=== PATIENT | female | born 1995 | race Caucasian/White ===

== ENCOUNTER 2021-05-17 04:56 | Observation (INO) | payer OTHER, SELFPAY ==
[2021-05-17 06:05] VITALS: BMI 36.6
--- NOTE | 2021-05-17 06:05 | OBADM ---
This patient, Kirstie Fernández, admitted to the OB room Labor/Delivery/Recovery 106 for observation. Patient/family oriented to hospital policies and general routines including ID bracelet, bed and alarms, visiting hours, pain management, procedures, bathroom and other care routines, personal items, smoking policy, room service/diet, and visiting hours. Patient/Family are encouraged to report perceived risks to care and to ask questions if they do not understand what they are told or what they should do.
--- NOTE | 2021-05-19 12:25 | P.PNOB_ITS ---
OB - Triage/Final Diagnosis Visit Information Date of evaluation: 05/19/21 Reason for evaluation: threatened labor Comments/Additional reasons for admission: I have assessed the risk for this patient, Kirstie Giancarlo Fernández, and determined that she would benefit from o bservation care.
== END 2021-05-17 07:18 | disposition home or self-care (01) ==
PROVIDERS: Admitting Provider Obstetrics & Gynecology; PCP Nurse Practitioner Family; Visit Provider Obstetrics & Gynecology
DX: O47.1 False labor at or after 37 completed weeks of gestation (principal); Z3A.38 38 weeks gestation of pregnancy
CPT/HCPCS: G0378; G0379

== ENCOUNTER 2021-05-19 16:03 | Inpatient (IN) | payer OTHER, SELFPAY ==
[2021-05-19] VITALS (14 sets, daily range): BP systolic 94–131; BP diastolic 37–83; PULSE 66–99; BMI 37.0
--- NOTE | 2021-05-19 17:04 | LDADM ---
This patient, Kirstie Fernández, was admitted to Labor/Delivery/Recovery 109 on 05/19/21 at 16:03. Plans for labor, pain management and were discussed with patient. Patient/family oriented to hospital policies and general routines including ID bracelet, bed and alarms, visiting hours, pain management, procedures, bathroom and other care routines, personal items, smoking policy, room service/diet and guest tray routines, infant security routines, and visiting hours. Patient/Family are encouraged to report perceived risks to care and to ask questions if they do not understand what they are told or what they should do. See OBIX for further documentation.
[2021-05-19 17:05] LABS: Basophils Percent Auto 0.2 % (0.2-1.2); Eosinophils Absolute Auto 0.1 K/mm3 (0-0.3); Eosinophils Percent Auto 0.6 % (0-4.4); Hematocrit 32.3 % (37.0-47.0); Hemoglobin 10.6 g/dL (12.0-15.0); Immature Granulocyte Absolute 0.19 K/mm3 (0.00-0.031); Immature Granulocyte Percent A 1.4 % (0-0.5); Lymphocytes Absolute Auto 2.45 K/mm3 (0.9-3.2); Lymphocytes Percent Auto 17.6 % (18.3-44.2); Mean Corpuscular HGB Conc 32.8 g/dl (32-36); Mean Corpuscular Hemoglobin 27.7 pg (26-34); Mean Corpuscular Volume 84.6 fl (80-100); Mean Platelet Volume 10.8 fl (7.4-10.4); Monocytes Absolute Auto 0.7 K/mm3 (0.1-0.6); Neutrophils Absolute Auto 10.5 K/mm3 (1.3-6.7); Neutrophils Percent Auto 75.2 % (45.5-73.1); Platelet Count Result 246 k/mm3 (150-375); Red Blood Count 3.82 M/mm3 (4.2-5.4); Red Cell Distribution Width 14.3 % (11.5-14.5); White Blood Count 13.9 K/mm3 (4.5-10.0)
[2021-05-19] MEDS: DINOPROSTONE 10 MG VAG INSERT VAGINAL (17:08)
[2021-05-20] VITALS (123 sets, daily range): BP systolic 80–128; BP diastolic 37–99; PULSE 59–147; RESP 14–18; TEMP 36.5–37.1; O2SAT 95–100
[2021-05-20] MEDS: fentaNYL CITRATE INJ (*CRX) 100 MCG/2 ML VIAL 50 MCG IV PUSH ×3 (02:15→06:29)
[2021-05-20] MEDS: LACTATED RINGERS 1,000 ML 125 ML IV CONT ×2 (03:24→07:32)
--- NOTE | 2021-05-20 07:57 | WPDANESEPPF ---
Anes - Initial Pre Proc Eval Procedure: labor epidural Date/Time: 05/20/21 07:57 Surgeon: Iban Joe MD Pre Op Diagnosis: labor pain Pre Op Diagnosis: iol Patient Data Age: 25 Gender: F Height: 1.57 m Weight: 92 kg Last Vital Signs Pulse 76 05/20/21 07:55 BP 112/61 05/20/21 07:55 Pulse Ox 98 05/20/21 07:54 Allergies Allergy/AdvReac Type Severity Reaction Status Date / Time Sulfa (Sulfonamide Allergy Unknown RASH Verified 05/18/20 09:52 Antibiotics) Home Medications Medication Instructions Recorded Confirmed Type PNV cmb#95-ferrous fumarate-FA 1 tablet PO DAILY 04/26/21 05/19/21 History [] famotidine [Pepcid] 20 mg PO DAILY 05/17/21 05/19/21 History Laboratory Tests 05/19/21 05/19/21 05/19/21 16:52 16:52 17:38 WBC 13.9 K/mm3 H K/mm3 (4.5-10.0) RBC 3.82 M/mm3 L M/mm3 (4.2-5.4) Hgb 10.6 g/dL L g/dL (12.0-15.0) Hct 32.3 % L % (37.0-47.0) MCV 84.6 fl fl (80-100) MCH 27.7 pg pg (26-34) MCHC 32.8 g/dl g/dl (32-36) RDW 14.3 % % (11.5-14.5) Plt Count 246 k/mm3 k/mm3 (150-375) MPV 10.8 fl H fl (7.4-10.4) Immature Gran % (Auto) 1.4 % H % (0-0.5) Neut % (Auto) 75.2 % H % (45.5-73.1) Lymph % (Auto) 17.6 % L % (18.3-44.2) [place] % (Auto) 5.0 % % (2.6-8.5) Eos % (Auto) 0.6 % % (0-4.4) Baso % (Auto) 0.2 % % (0.2-1.2) Lymph # (Auto) 2.45 K/mm3 K/mm3 (0.9-3.2) [place] # (Auto) 0.7 K/mm3 H K/mm3 (0.1-0.6) Eos # (Auto) 0.1 K/mm3 K/mm3 (0-0.3) Baso # (Auto) 0.0 K/mm3 K/mm3 (0.0-0.1) Abs Immat Gran (auto) 0.19 K/mm3 H K/mm3 (0.00-0.031) Absolute Neuts (auto) 10.5 K/mm3 H K/mm3 (1.3-6.7) Absolute Nucleated RBC 0.0 K/mm3 K/mm3 (0.0-0.012) Nucleated RBC % 0.0 % % (0.0-0.2) RPR Pending Blood Type A Positive Antibody Screen Negative Patient hx anesthesia problems: none Family hx anesthesia problems: none Results Review: All pre-operative results and documents have been reviewed as part of the pre-operative evaluation. [facility] Family History Family History (Updated 04/26/21 @ 15:53 by Ry Belcher RN) Mother Cerebrovascular accident Heart disease Thyroid disease Father Heart disease Diabetes mellitus Crohn disease Social History Social History (Updated 05/18/20 @ 09:53 by Johnna Cortes MA) Smoking packs per day: 0.5 Smoking cigarettes per day: 10.0 Smoking status: Current some day smoker Substance use: never Spiritual care concerns: No Anes - Eval Final PreProcedure Day of Procedure 05/20/21 07:57 Patient weight: obese ASA classification: II Anesthesia type and monitoring: regional epidural and standard monitoring Results Review: All pre-operative results and documents have been reviewed as part of the pre-operative evaluation. Informed Consent: The patient's anesthetic plan and its attendant risks and benefits were discussed with the patient/family/POA. Questions were solicited and answers provided to the satisfaction of the patient/family/POA.
--- NOTE | 2021-05-20 08:45 | WPDHPUPDATE1 ---
History and Physical Update Update Date/Time: 05/20/21 2095 History and Physical has been reviewed, including an updated exam of the patient. There are NO changes in the patient's condition. Risks, benefits, and alternatives have been discussed and questions answered. Patient agrees to proceed with procedure.
--- NOTE | 2021-05-20 09:22 | WPDANESEFPP ---
Anes - Eval Final PreProcedure Day of Procedure 05/20/21 09:22 Patient weight: obese Heart: regular rate and rhythm Lungs: clear to auscultation and normal air movement Airway: Mallampati scale class II Neurological: alert and oriented Last oral intake: >/= 8 hours ASA classification: II Emergent: no Anesthetic plan: proceed Anesthesia type and monitoring: regional epidural and standard monitoring Other findings: C/S - breech presentation Results Review: All pre-operative results and documents have been reviewed as part of the pre-operative evaluation. Informed Consent: The patient's anesthetic plan and its attendant risks and benefits were discussed with the patient/family/POA. Questions were solicited and answers provided to the satisfaction of the patient/family/POA.
[2021-05-20] MEDS: ceFAZolin 2 GM/D5W 50 ML 2 GM/50 ML BAG IVPB (09:41)
--- NOTE | 2021-05-20 09:47 | PM.IMHP ---
H&P: HPI History of Present Illness Date/Time: 05/20/21 09:47 25 y/o at 39 1/7 weeks gestation here for induction of labor. Cervidil was placed overnight, has been withdrawn. Now comfortable with epidural. Chief Complaint: Here for induction of labor Review of Systems Review of Systems: All systems reviewed & are unremarkable except as noted in HPI and below PMFSH Family History Family History Mother Cerebrovascular accident Heart disease Thyroid disease Father Heart disease Diabetes mellitus Crohn disease Social History Social History Smoking packs per day: 0.5 Smoking cigarettes per day: 10.0 Smoking status: Current some day smoker Substance use: never Spiritual care concerns: No Meds Home Medications and Allergies Home Medications Medication Instructions Recorded Confirmed Type PNV cmb#95-ferrous fumarate-FA 1 tablet PO DAILY 04/26/21 05/19/21 History [] famotidine [Pepcid] 20 mg PO DAILY 05/17/21 05/19/21 History Allergies Allergy/AdvReac Type Severity Reaction Status Date / Time Sulfa (Sulfonamide Allergy Unknown RASH Verified 05/18/20 09:52 Antibiotics) Vital Signs Vital Signs - 24 hr 05/19/21 17:12 05/19/21 17:30 05/19/21 18:00 Pulse Rate 91 85 83 Blood Pressure 115/83 111/76 113/70 Pulse Oximetry 05/19/21 18:31 05/19/21 19:00 05/19/21 19:30 Pulse Rate 99 91 82 Blood Pressure 130/81 111/70 114/76 Pulse Oximetry 05/19/21 20:00 05/19/21 20:30 05/19/21 21:00 Pulse Rate 74 93 66 Blood Pressure 124/72 109/56 L 114/63 Pulse Oximetry 05/19/21 21:30 05/19/21 22:01 05/19/21 22:30 Pulse Rate 75 75 74 Blood Pressure 131/77 94/37 L 110/61 Pulse Oximetry 05/19/21 23:00 05/19/21 23:30 05/20/21 00:00 Pulse Rate 78 94 90 Blood Pressure 105/50 L 107/55 L 100/48 L Pulse Oximetry 05/20/21 00:30 05/20/21 01:00 05/20/21 01:30 Pulse Rate 91 91 82 Blood Pressure 122/73 122/99 H 104/57 L Pulse Oximetry 05/20/21 02:00 05/20/21 02:30 05/20/21 03:00 Pulse Rate 81 78 78 Blood Pressure 105/46 L 101/50 L 102/51 L Pulse Oximetry 05/20/21 03:30 05/20/21 04:00 05/20/21 04:30 Pulse Rate 83 77 77 Blood Pressure 113/62 107/69 89/50 L Pulse Oximetry 05/20/21 04:53 05/20/21 05:00 05/20/21 05:30 Pulse Rate 90 76 87 Blood Pressure 104/62 105/51 L 110/73 Pulse Oximetry 05/20/21 06:01 05/20/21 07:00 05/20/21 07:21 Pulse Rate 116 H 97 111 H Blood Pressure 96/67 L 128/79 119/71 Pulse Oximetry 100 05/20/21 07:25 05/20/21 07:28 05/20/21 07:30 Pulse Rate 97 85 78 Blood Pressure 102/63 113/97 H 103/60 Pulse Oximetry 96 98 05/20/21 07:33 05/20/21 07:34 05/20/21 07:35 Pulse Rate 91 90 Blood Pressure 116/62 108/66 Pulse Oximetry 98 05/20/21 07:38 05/20/21 07:39 05/20/21 07:40 Pulse Rate 94 84 Blood Pressure 107/67 110/65 Pulse Oximetry 98 05/20/21 07:43 05/20/21 07:44 05/20/21 07:45 Pulse Rate 92 102 H Blood Pressure 103/64 109/63 Pulse Oximetry 98 05/20/21 07:48 05/20/21 07:50 05/20/21 07:53 Pulse Rate 91 87 91 Blood Pressure 98/61 L 108/67 109/72 Pulse Oximetry 99 05/20/21 07:54 05/20/21 07:55 05/20/21 07:58 Pulse Rate 76 80 Blood Pressure 112/61 106/65 Pulse Oximetry 98 05/20/21 07:59 05/20/21 08:00 05/20/21 08:03 Pulse Rate 91 77 Blood Pressure 102/63 101/62 Pulse Oximetry 99 05/20/21 08:05 05/20/21 08:08 05/20/21 08:09 Pulse Rate 86 83 Blood Pressure 105/64 101/59 L Pulse Oximetry 98 99 05/20/21 08:10 05/20/21 08:13 05/20/21 08:14 Pulse Rate 91 75 Blood Pressure 105/67 97/37 L Pulse Oximetry 98 05/20/21 08:15 05/20/21 08:18 05/20/21 08:19 Pulse Rate 86 92 Blood Pressure 108/65 101/58 L Pulse Oximetry 98 05/20/21 08:20 05/20/21 08:23 05/20/21 08:24 Pulse Rate 82 93 Blood Pressur
[2021-05-20] MEDS: KETOROLAC 30 MG/ML VIAL (*BKC) 15 MG IV PUSH (10:00)
--- NOTE | 2021-05-20 10:27 | P.PCNOB_ITS ---
OB - Delivery Note Procedure Delivery date: 05/20/21 Procedure: Procedures Operation Date: 05/20/21 09:45 <No data on this case meets the specified criteria> Primary low transverse delivery Delivery monitor: external FHT and external uterine Route of delivery: Specimen: Yes (cord blood) Quantitative Blood Loss (ml): 635 Anesthesia type: Epidural Disposition: PACU Complications: None Narrative: The patient was taken to the operating room where she was prepared and draped in the usual sterile fashion in dorsal supine position with a leftward tilt. She received cefazolin preoperatively. Epidural anesthesia was found to be adequate. A Pfannenstiel skin incision was made and carried through to the underlying layer of the fascia. The fascia was incised in the midline and the incision was extended laterally. The fascia was dissected free of the underlying rectus muscles. The rectus muscles were in the midline. The peritoneum was identified, tented up and entered sharply. The peritoneal incision was extended superiorly and inferiorly with good visualization of the bladder. The bladder blade was placed. The vesicouterine peritoneum was identified, tented up and entered sharply. The incision was extended laterally and the bladder flap was developed. The bladder blade was replaced. The uterus was then incised sharply in a transverse fashion along the lower uterine segment. The incision was extended laterally. The 's breech was delivered atraumatically to the sterile field to the level of the scapulae. The arms were swept across the chest and delivered. The head was gently flexed and easily delivered. The nose and mouth were bulb suctioned. After a delay, the cord was clamped and cut. The was handed off the field. Cord blood was collected. The placenta was removed manually and was passed off the field. The uterus was exteriorized and cleared of all clots and debris. The uterine incision was reapproximated using 0 Monocryl in a running, locked fashion. A second, imbricating layer of the same suture was run. Excellent hemostasis resulted as did excellent reapproximation of the normal anatomy. The uterus was returned the abdomen. The pelvis was irrigated copiously with warmed normal saline. Rigorous hemostasis was assured. The fascial layer was reapproximated using 0 Vicryl in a running fashion. The skin was closed with a running, subcuticular stitch of 4 0 Vicryl. Dermaflex was applied externally. Sponge, lap, needle and instrument counts were correct. The patient was taken to the recovery room in stable condition. The went to the nursery in stable condition. I was present and scrubbed the entire procedure. [place] Baby Date of : 05/20/21 Time of : 09:57 Weeks of gestation at delivery: 39 Infant gender: Male Weight (pounds): 8 Weight (ounces): 7 presentation: johnathan breech Placenta delivery description: Manual Removal and Normal Configuration cord vessel description: 3 Vessels and Delayed Cord Clamping score one minute: 8 score five minutes: 9
--- NOTE | 2021-05-20 10:28 | WPDHPUPDATE1 ---
History and Physical Update Update Date/Time: 05/20/21 10:28 History and Physical has been reviewed, including an updated exam of the patient. There are NO changes in the patient's condition. Risks, benefits, and alternatives have been discussed and questions answered. Patient agrees to proceed with procedure.
[2021-05-20] MEDS: OXYTOCIN 30 UNITS/NS 500 ML 30 UNITS/500 ML BAG 125 UNITS IV CONT (13:30)
--- NOTE | 2021-05-20 13:30 | OBPPTRN ---
Patient transferred to post room #280 via stretcher. Support person present. Oriented to unit, room, information board, rooming in, admission packet and security measures. Patient verbalizes understanding.
[2021-05-20 13:34] LABS: Rapid Plasma Reagin Non-Reactive (NonReactive)
[2021-05-20] MEDS: KETOROLAC 30 MG/ML VIAL (*BKC) IV PUSH (14:03)
[2021-05-20] MEDS: diphenhydrAMINE HCl INJ 50 MG/ML VIAL 25 MG IV PUSH (16:03)
[2021-05-20] MEDS: SIMETHICONE 80 MG TAB.CHEW PO (16:03)
[2021-05-20] MEDS: DEXTROSE 5%/0.45% SOD CHL 1,000 ML 125 ML IV CONT (17:13)
[2021-05-20] MEDS: HYDROcodone/acetaminophen (*CRX) 10-325 MG TABLET 1 TAB PO ×2 (20:31→23:29)
[2021-05-20] MEDS: IBUPROFEN 600 MG TABLET PO (20:31)
[2021-05-21] MEDS: HYDROcodone/acetaminophen (*CRX) 5-325 MG TABLET 1 TAB PO ×4 (03:48→22:09)
[2021-05-21] MEDS: IBUPROFEN 600 MG TABLET PO ×4 (03:49→22:10)
[2021-05-21 05:12] LABS: Basophils Percent Auto 0.2 % (0.2-1.2); Eosinophils Absolute Auto 0.1 K/mm3 (0-0.3); Eosinophils Percent Auto 0.5 % (0-4.4); Hematocrit 29.8 % (37.0-47.0); Hemoglobin 9.3 g/dL (12.0-15.0); Immature Granulocyte Absolute 0.09 K/mm3 (0.00-0.031); Immature Granulocyte Percent A 0.7 % (0-0.5); Lymphocytes Absolute Auto 2.61 K/mm3 (0.9-3.2); Lymphocytes Percent Auto 19.8 % (18.3-44.2); Mean Corpuscular HGB Conc 31.2 g/dl (32-36); Mean Corpuscular Hemoglobin 27.4 pg (26-34); Mean Corpuscular Volume 87.9 fl (80-100); Mean Platelet Volume 11.3 fl (7.4-10.4); Monocytes Percent Auto 7.4 % (2.6-8.5); Neutrophils Absolute Auto 9.4 K/mm3 (1.3-6.7); Neutrophils Percent Auto 71.4 % (45.5-73.1); Platelet Count Result 190 k/mm3 (150-375); Red Blood Count 3.39 M/mm3 (4.2-5.4); Red Cell Distribution Width 14.6 % (11.5-14.5); White Blood Count 13.2 K/mm3 (4.5-10.0)
[2021-05-21 08:15] VITALS: BP 98/65; PULSE 70; RESP 16; TEMP 36.8; O2SAT 99
--- NOTE | 2021-05-21 10:39 | WPDANLDPN2 ---
Anes-Prog Note L&D Date/Time: 05/21/21 10:39 Comfortable throughout: labor and section Neuraxial method: epidural Epidural/Spinal procedure site: clean & non-tender Neuro status: Neuro function grossly intact. Cardiovascular status: normal Respiratory status: normal Airway patency: baseline Mental status: baseline Post-Op hydration status: normal Vital Signs: Last Vital Signs Temp 36.8 C 05/21/21 08:15 Pulse 70 05/21/21 08:15 Resp 16 05/21/21 08:15 BP 98/65 L 05/21/21 08:15 Pulse Ox 99 05/21/21 08:15 Pain score (VAS): 06/21 I/O: Intake & Output 05/20/21 05/21/21 05/21/21 23:59 07:59 15:59 Intake Total 270 1050 Output Total 100 2825 Balance 170 -1775 Post-procedural complaints: pruritis severe, treatment refractory Patient feedback: Patient satisfied with anesthetic care.
--- NOTE | 2021-05-21 10:40 | WPDANLDNPN2 ---
Anes-Prog Note L&D-Neuraxial Date/Time: 05/21/21 10:40 Neuraxial medications: epidural PF morphine Opiod-related complaints: pruritis severe, treatment refractory Patient feedback: Patient satisfied with post-operative pain management.
[2021-05-21] MEDS: POLYSACCHARIDE IRON COMPLEX 150 MG CAPSULE PO ×2 (10:55→16:32)
[2021-05-21] MEDS: DOCUSATE SODIUM 100 MG CAPSULE PO ×2 (10:55→16:32)
[2021-05-21] MEDS: MULTIVIT/MIN/PREN/FOL AC/IRON TABLET 1 TAB PO (10:55)
--- NOTE | 2021-05-21 12:10 | PM.OBPNVD ---
OB - PN: Subj Subjective Date/time seen: 05/21/21 12:10 Narrative: Pain OK. Tolerating diet. Would like circumcision for son. OB - PN: Obj Data Labs CBC & Chem 7: 05/21/21 03:59 Labs: Laboratory Results - last 24 hr 05/19/21 05/21/21 16:52 03:59 WBC 13.2 H RBC 3.39 L Hgb 9.3 L Hct 29.8 L MCV 87.9 MCH 27.4 MCHC 31.2 L RDW 14.6 H Plt Count 190 MPV 11.3 H Immature Gran % (Auto) 0.7 H Neut % (Auto) 71.4 Lymph % (Auto) 19.8 [place] % (Auto) 7.4 Eos % (Auto) 0.5 Baso % (Auto) 0.2 Lymph # (Auto) 2.61 [place] # (Auto) 1.0 H Eos # (Auto) 0.1 Baso # (Auto) 0.0 Abs Immat Gran (auto) 0.09 H Absolute Neuts (auto) 9.4 H Absolute Nucleated RBC 0.0 Nucleated RBC % 0.0 RPR Non-reactive OB - PN A/P Plan Comments: A: POD#1, doing well. P: Routine care. Reviewed circ. Exam Narrative: AVSS I/O OK ABD soft, nontender, fundus firm. Incision c/d/i. EXT nontender
--- NOTE | 2021-05-21 12:13 | PM.OBDSVD ---
DS: Admitting Diagnosis Discharge Date 05/22/21 Admitting Diagnosis IUP at 39 1/7 weeks DS: Discharge Diagnosis Discharge Diagnosis (1) delivery delivered: Code(s): O82 - Encounter for delivery without indication Status: Acute OB - DS: Summary OB Procedures : Ultrasound OB Procedures Intrapartum: OB Procedures: : None Peripartum Data Procedures: Procedures Operation Date: 05/20/21 09:45 Actual Procedure Side Surgeon p Section Not Applicable Iban Joe MD DS: Data Data Completed and Pending Labs on day of discharge: Labs from last 24 hours 05/21/21 05/19/21 03:59 16:52 WBC 13.2 H RBC 3.39 L Hgb 9.3 L Hct 29.8 L MCV 87.9 MCH 27.4 MCHC 31.2 L RDW 14.6 H Plt Count 190 MPV 11.3 H Immature Gran % (Auto) 0.7 H Neut % (Auto) 71.4 Lymph % (Auto) 19.8 [place] % (Auto) 7.4 Eos % (Auto) 0.5 Baso % (Auto) 0.2 Lymph # (Auto) 2.61 [place] # (Auto) 1.0 H Eos # (Auto) 0.1 Baso # (Auto) 0.0 Abs Immat Gran (auto) 0.09 H Absolute Neuts (auto) 9.4 H Absolute Nucleated RBC 0.0 Nucleated RBC % 0.0 RPR Non-reactive Discharge Plan Discharge Attending physician on discharge: Iban Joe Consulting providers: Ruddy [facility] Discharging Clinician: Iban Joe Patient Disposition: Home, Self-Care Activity: may shower, may drive after 2 weeks and pelvic rest Diet: regular Wound Care Instructions: incision open to air Discharge Instructions: Call or return if temperature above 100.4? F, increased abdominal pain, increased vaginal bleeding or any new problems. Education: Mom and Baby Guide Given to: Mother Follow-Up: Call your delivering provider's office for an appointment to be seen in: 4 Weeks Mom and baby should come to the [facility] for the follow-up appointment. Appointment Date/Time: May 24, 2021 at 10:00 am What to expect at your follow-up visit: Physical Assessment Call [phone] if you are unable to keep your appointment time. BREAST CARE: * Wear a snug supportive bra. * For engorgement discomfort: Bottle Feeding: * May apply ice packs ABDOMINAL INCISION: (if applicable) * Allow incision to air dry * Do NOT use lotions for powders on your incision * When showering, allow soap and water to run over the incision, but do not wash incision EPISIOTOMY/PERINEAL CARE: * Until bleeding stops, use your clark bottle after urinating * Change your pad frequently throughout the day * No tub baths until seen by your physician - You may shower ACTIVITY: * Rest as much as possible. * Do not exercise or lift anything heavier than your baby (such as laundry or other children.) * Avoid stairs or driving as much as possible. * Do not put anything into the vagina. No douching, tampons, or sexual activity until seen by physician. NOTIFY PHYSICIAN IF YOU HAVE ANY QUESTIONS OR IF ANY OF THE FOLLOWING SYMPTOMS OCCUR: * If your incision becomes red, swollen, or more painful than what you have experienced in the hospital. * If your vaginal bleeding becomes foul smelling. * If your vaginal bleeding becomes more heavy than a period or if your bleeding changes from pink to bright red. However, you may pass an occasional walnut-sized clot once or twice for the first week . * If you experience a sharp, shooting pain in you calves. * If you discover a hard, reddened area on your breast or if you experience flu-like symptoms. DIET: * Eat regular, well-balanced meals. * Drink plenty of fluids daily. If , drink to thirst. Stand Alone Forms: General Discharge Information Follow-up/Referrals: Iban Joe MD [Physician] - 4 Weeks Discharge Medications: New ibuprofen 600 mg tablet 600 mg PO Q6H PRN (Reason: cramps) Qty: 30 RF: 0 ferrous sulfate 325 mg (65
[2021-05-21 19:15] VITALS: BP 119/71; PULSE 69; RESP 16; TEMP 36.8; O2SAT 100
[2021-05-22] MEDS: HYDROcodone/acetaminophen (*CRX) 5-325 MG TABLET 1 TAB PO ×2 (04:54→11:15)
[2021-05-22] MEDS: IBUPROFEN 600 MG TABLET PO ×2 (04:54→11:15)
[2021-05-22 07:15] VITALS: BP 117/64; PULSE 81; RESP 16; TEMP 36.6
[2021-05-22] MEDS: DOCUSATE SODIUM 100 MG CAPSULE PO (07:38)
[2021-05-22] MEDS: MULTIVIT/MIN/PREN/FOL AC/IRON TABLET 1 TAB PO (07:38)
[2021-05-22] MEDS: POLYSACCHARIDE IRON COMPLEX 150 MG CAPSULE PO (07:38)
--- NOTE | 2021-05-22 11:05 | PC.NURSE ---
Patient viewed the discharge video Mother & Baby Care, The First Two Weeks . Patient was given the opportunity and encouraged to ask questions. Patient verbalized understanding of information shared and has been given the mother/baby guide for home reference.
[2021-05-24 09:44] VITALS: BP 137/80; PULSE 73; RESP 16; TEMP 37.3; O2SAT 100
== END 2021-05-22 12:00 | disposition home or self-care (01) | DRG 788 ==
LOC: ANHOB2 05-22 09:19 → ANHLDR 05-25 07:26 → ANHOB2 05-25 07:26
PROVIDERS: Admitting Provider Obstetrics & Gynecology; PCP Nurse Practitioner Family; Visit Provider Student in an Organized Health Care Education/Training Program
PROC: 10D00Z1 Extraction of Products of Conception, Low, Open Approach (ICD-10-PCS; CPT 59514; principal; 2021-05-20 09:45)
DX: O32.1XX0 Maternal care for breech presentation, not applicable or unspecified (principal); O99.334 Smoking (tobacco) complicating childbirth; F17.210 Nicotine dependence, cigarettes, uncomplicated; Z3A.39 39 weeks gestation of pregnancy; Z37.0 Single live birth
CPT/HCPCS: 36415; 85025; 86592; 86850; 86900; 86901; A9270; G0378; G0379; J0690; J1200; J1885; J2274; J2405; J2590; J2795; J3010; J7120

== ENCOUNTER 2024-11-05 09:24 | Inpatient (IN) | payer OTHER, SELFPAY ==
[2024-11-05] VITALS (45 sets, daily range): BP systolic 85–120; BP diastolic 42–72; PULSE 65–97; RESP 14–20; TEMP 36.2–37.1; O2SAT 95–100; BMI 39.9
--- NOTE | 2024-11-05 09:44 | LDADM ---
This patient, Kirstie Fernández, was admitted to Labor/Delivery/Recovery 120 on 11/05/24 at 09:24. Plans for labor, pain management and were discussed with patient. Patient/family oriented to hospital policies and general routines including ID bracelet, bed and alarms, visiting hours, pain management, procedures, bathroom and other care routines, personal items, smoking policy, room service/diet and guest tray routines, infant security routines, and visiting hours. Patient/Family are encouraged to report perceived risks to care and to ask questions if they do not understand what they are told or what they should do. See OBIX for further documentation.
[2024-11-05] MEDS: ACETAMINOPHEN 500 MG TABLET 1000 MG PO (10:16)
[2024-11-05] MEDS: LACTATED RINGERS 1,000 ML 125 ML IV CONT (10:37)
[2024-11-05 10:38] LABS: Basophils Percent Auto 0.3 % (0.2-1.2); Eosinophils Absolute Auto 0.1 K/mm3 (0-0.3); Eosinophils Percent Auto 0.5 % (0-4.4); Hemoglobin 8.6 g/dL (12.0-15.0); Immature Granulocyte Absolute 0.29 K/mm3 (0.00-0.031); Immature Granulocyte Percent A 2.9 % (0-0.5); Lymphocytes Percent Auto 15.8 % (18.3-44.2); Mean Corpuscular HGB Conc 30.7 g/dl (32-36); Mean Corpuscular Hemoglobin 25.8 pg (26-34); Mean Corpuscular Volume 84.1 fl (80-100); Mean Platelet Volume 10.6 fl (7.4-10.4); Monocytes Absolute Auto 0.5 K/mm3 (0.1-0.6); Monocytes Percent Auto 5.1 % (2.6-8.5); Neutrophils Absolute Auto 7.6 K/mm3 (1.3-6.7); Neutrophils Percent Auto 75.4 % (45.5-73.1); Nucleated Red Blood Cells Perc 0.4 % (0.0-0.2); Platelet Count Result 224 k/mm3 (150-375); Red Blood Count 3.33 M/mm3 (4.2-5.4); White Blood Count 10.1 K/mm3 (4.5-10.0)
[2024-11-05] MEDS: LORATADINE 10 MG TABLET PO (10:49)
[2024-11-05 11:28] LABS: HIV 1/2 Ab P24 Ag Result Negative (Negative)
[2024-11-05 11:35] LABS: Syphilis IgG/IgM Antibody Negative (Negative)
--- NOTE | 2024-11-05 12:10 | P.PNAN_ITS ---
Anes - Initial Pre Proc Eval Procedure: Operation Date: 11/05/24 12:00 Proposed Procedures p Repeat Section - Iban Joe MD Date/Time: 11/05/24 12:10 Surgeon: Iban Joe MD Pre Op Diagnosis: C/S Patient Data Age: 28 Gender: F Height: 1.57 m Weight: 99 kg Last Vital Signs Pulse 86 11/05/24 10:46 BP 110/69 11/05/24 10:46 O2 Del Method Room Air 11/05/24 09:43 Allergies Allergy/AdvReac Type Severity Reaction Status Date / Time Sulfa (Sulfonamide Allergy Unknown RASH Verified 10/14/24 15:39 Antibiotics) Home Medications ?Medication ?Instructions ?Recorded ?Confirmed ?Type vit no.95-ferrous 1 tablet PO DAILY 04/26/21 10/14/24 History fumarate 28 mg-folic acid 800 mcg tablet () famotidine 20 mg tablet (Pepcid) 20 mg PO DAILY 05/17/21 10/14/24 History Laboratory Tests 11/05/24 09:52 WBC 10.1 H K/mm3 (4.5-10.0) RBC 3.33 L M/mm3 (4.2-5.4) Hgb 8.6 L g/dL (12.0-15.0) Hct 28.0 L % (37.0-47.0) MCV 84.1 fl (80-100) MCH 25.8 L pg (26-34) MCHC 30.7 L g/dl (32-36) RDW 17.0 H % (11.5-14.5) Plt Count 224 k/mm3 (150-375) MPV 10.6 H fl (7.4-10.4) Immature Gran % (Auto) 2.9 H % (0-0.5) Neut % (Auto) 75.4 H % (45.5-73.1) Lymph % (Auto) 15.8 L % (18.3-44.2) [place] % (Auto) 5.1 % (2.6-8.5) Eos % (Auto) 0.5 % (0-4.4) Baso % (Auto) 0.3 % (0.2-1.2) Lymph # (Auto) 1.60 K/mm3 (0.9-3.2) [place] # (Auto) 0.5 K/mm3 (0.1-0.6) Eos # (Auto) 0.1 K/mm3 (0-0.3) Baso # (Auto) 0.0 K/mm3 (0.0-0.1) Abs Immat Gran (auto) 0.29 H K/mm3 (0.00-0.031) Absolute Neuts (auto) 7.6 H K/mm3 (1.3-6.7) Absolute Nucleated RBC 0.040 H K/mm3 (0.0-0.012) Nucleated RBC % 0.4 H % (0.0-0.2) Syphilis IgG/IgM Ab Negative (Negative) HIV 1&2 Ab/P24 Ag 4thGn Negative (Negative) Blood Type A Positive Antibody Screen Negative Patient hx anesthesia problems: none Family hx anesthesia problems: none Results Review: All pre-operative results and documents have been reviewed as part of the pre- operative evaluation. [facility] Family History Family History Mother Heart disease Thyroid disease Cerebrovascular accident Father Diabetes mellitus Crohn disease Heart disease Cerebrovascular accident Social History Social History Smoking packs per day: 0.5 Smoking cigarettes per day: 10.0 Smoking status: Former smoker Tobacco type: cigarettes Substance use: never Do You Feel Safe in your Home?: Yes Lack of Transportation: No Lack of Food: Never True Current Housing: I Have Housing Concerned About Future Housing: No Difficulty Paying Gas/Electric Bills: No Difficulty Paying for Meds: No Currently Unemployed: No Education: High School Diploma/GED Difficulty w/ Childcare or Family Care: No Spiritual care concerns: No Anes - Eval Final PreProcedure Day of Procedure 11/05/24 12:10 Patient weight: obese Lungs: normal air movement Airway: Mallampati scale class II Neurological: alert and oriented Last oral intake: >/= 8 hours ASA classification: III Emergent: no Anesthetic plan: proceed Anesthesia type and monitoring: regional spinal and standard monitoring Results Review: All pre-operative results and documents have been reviewed as part of the pre- operative evaluation. Informed Consent: The patient's anesthetic plan and its attendant risks and benefits were discussed with the patient/family/POA. Questions were solicited and answers provided to the satisfaction of the patient/family/POA.
[2024-11-05] MEDS: ONDANSETRON INJ 4 MG/2 ML VIAL IV PUSH (12:21)
[2024-11-05] MEDS: FAMOTIDINE 20 MG/2 ML VIAL IV PUSH (12:21)
[2024-11-05] MEDS: ceFAZolin 2 GM/D5W 50 ML 2 GM/50 ML BAG IVPB (12:23)
--- NOTE | 2024-11-05 12:23 | PM.IMHP ---
H&P: HPI History of Present Illness Date/Time: 11/05/24 12:23 Chief Complaint: Here for c section Narrative: 28 y/o at 39 weeks here for repeat . uncomplicated. GBS neg. Review of Systems Review of Systems: All systems reviewed & are unremarkable except as noted in HPI and below PMFSH Past Medical History Medical History History of kidney stones Surgical History Surgical History (Updated 11/05/24 @ 12:25 by Iban Joe MD) History of delivery Family History Family History Mother Heart disease Thyroid disease Cerebrovascular accident Father Diabetes mellitus Crohn disease Heart disease Cerebrovascular accident Social History Social History Smoking packs per day: 0.5 Smoking cigarettes per day: 10.0 Smoking status: Former smoker Tobacco type: cigarettes Substance use: never Do You Feel Safe in your Home?: Yes Lack of Transportation: No Lack of Food: Never True Current Housing: I Have Housing Concerned About Future Housing: No Difficulty Paying Gas/Electric Bills: No Difficulty Paying for Meds: No Currently Unemployed: No Education: High School Diploma/GED Difficulty w/ Childcare or Family Care: No Spiritual care concerns: No Meds Home Medications and Allergies Home Medications ?Medication ?Instructions ?Recorded ?Confirmed ?Type vit no.95-ferrous 1 tablet PO DAILY 04/26/21 10/14/24 History fumarate 28 mg-folic acid 800 mcg tablet () famotidine 20 mg tablet (Pepcid) 20 mg PO DAILY 05/17/21 10/14/24 History Allergies Allergy/AdvReac Type Severity Reaction Status Date / Time Sulfa (Sulfonamide Allergy Unknown RASH Verified 10/14/24 15:39 Antibiotics) Vital Signs Vital Signs - 24 hr 11/05/24 09:43 11/05/24 10:46 Pulse Rate 86 Blood Pressure 110/69 Oxygen Delivery Room Air Exam Const: Orientation/consciousness: patient oriented x3 Other: Well-developed, well-nourished female in no acute distress. Neck: Thyroid: thyroid normal Lymphatic: no lymphadenopathy noted (in neck, axilla or inguinal nodes) Resp: Effort & Inspection: normal respiratory effort Auscultation: clear to auscultation bilaterally Cardio: Rate: regular rate Rhythm: regular rhythm Heart sounds: S1 normal heart sound present and S2 normal heart sound present GI: Other: ABD: Soft, nontender, nondistended, gravid. NST reactive. TOCO: rare contractions. No guarding or rebound tenderness. No hepatosplenomegaly. : General: Yes no CVA tenderness Other: Cervix closed / thick in office Back/Spine/Pelvis: Back: no CVA tenderness Skin: General skin exam: normal color and no rashes or lesions noted Neuro: General: patient oriented x3 Extrem: Other: Extremities: nontender with no edema Psych: Mental Status: mental status grossly normal Affect: normal affect H&P: Results Labs Labs: Short CBC 11/05/24 Range/Units 09:52 WBC 10.1 H (4.5-10.0) K/mm3 Hgb 8.6 L (12.0-15.0) g/dL Hct 28.0 L (37.0-47.0) % Plt Count 224 (150-375) k/mm3 Assessment and Plan Assessment and plan (1) Term : Code(s): Z34.90 - Encounter for supervision of normal , unspecified, unspecified trimester Status: Acute Assessment and Plan: A: IUP at 39 weeks with prior , desires repeat. P: Offered repeat low transverse delivery. She understands risks of surgery to include risks of anesthesia, risks of pain, infection, bleeding, blood products, thromboembolic phenomena and damage to adjacent structures such as bowel, bladder, ureters, blood vessels and nerves. She understands all these risks and elects to proceed with surgery. (2) History of delivery: Code(s): Z98.891 - History of uterine scar from previous surgery Status: Acute
--- NOTE | 2024-11-05 12:26 | WPDHPUPDATE1 ---
History and Physical Update Update Date/Time: 11/05/24 12:26 History and Physical has been reviewed, including an updated exam of the patient. There are NO changes in the patient's condition. Risks, benefits, and alternatives have been discussed and questions answered. Patient agrees to proceed with procedure.
--- NOTE | 2024-11-05 13:16 | W.PM.OBCSD ---
OB - Delivery Note Procedure Delivery date: 11/05/24 Pre-op diagnosis: Previous Delivery Post-op Diagnosis: Same Induction method: None Delivery augmentation: Rupture of Membranes and Pitocin Delivery monitor: External FHT and External Uterine Procedure Performed: Repeat Surgeon: Iban Joe MD Anesthesia type: Spinal Description of Procedure/Findings: Findings: Thin lower uterine segment. Otherwise, unremarkable uterus, tubes and ovaries. Techniques: The patient was taken to the operating room where she was prepared and draped in the usual sterile fashion in dorsal supine position with a leftward tilt. She received cefazolin preoperatively. Spinal anesthesia was found to be adequate. A Pfannenstiel skin incision was made along the previous scar line and was carried through to the underlying layer of the fascia. The fascia was incised in the midline and the incision was extended laterally. The fascia was dissected free of the underlying rectus muscles. The rectus muscles were in the midline. The peritoneum was identified, tented up and entered sharply. The peritoneal incision was extended superiorly and inferiorly with good visualization of the bladder. The bladder blade was placed. The vesicouterine peritoneum was identified, tented up and entered sharply. The incision was extended laterally and the bladder flap was developed. The bladder blade was replaced. The uterus was then incised sharply in a transverse fashion along the lower uterine segment. The incision was extended laterally. The infant's head was delivered atraumatically to the sterile field, followed by the body. The nose and mouth were bulb suctioned. After a delay, the cord was clamped and cut. The was handed off the field. Cord blood was collected. The placenta was removed manually and was passed off the field. The uterus was exteriorized and cleared of all clots and debris. The uterine incision was reapproximated using 0 Monocryl in a running, locked fashion. Excellent hemostasis resulted as did excellent reapproximation of the normal anatomy. The uterus was returned the abdomen. The pelvis was irrigated copiously with warmed normal saline. Rigorous hemostasis was assured. The fascial layer was reapproximated using 0 Vicryl in a running fashion. The skin was closed with a running, subcuticular stitch of 4 0 Vicryl. Dermaflex was applied externally. Sponge, lap, needle and instrument counts were correct. The patient was taken to the recovery room in stable condition. The went to the nursery in stable condition. I was present and scrubbed the entire procedure. Specimen: Yes (cord blood) Estimated Blood Loss: 225 Drains: Yes (Cheung) Packing: No Pathology: Yes (cord blood) Complications: None Condition: Stable Disposition: PACU [place] Baby Date of : 11/05/24 Time of : 12:49 Gestational Age by Date: 39 gender: Female Weight (pounds): 8 Weight (ounces): 6 presentation: vertex Placenta delivery description: Manual Removal and Normal Configuration Cord Vessel Description: 3 Vessels and Delayed Cord Clamping score one minute: 8 score five minutes: 9
--- NOTE | 2024-11-05 13:19 | PM.OBDSVD ---
DS: Admitting Diagnosis Discharge Date 11/07/24 Admitting Diagnosis IUP at 39 weeks Prior DS: Discharge Diagnosis Discharge Diagnosis (1) delivery delivered: Code(s): O82 - Encounter for delivery without indication Status: Acute OB - DS: Summary OB Procedures : None OB Procedures Intrapartum: OB Procedures: : None Peripartum Data Procedures: Procedures Operation Date: 11/05/24 12:00 <No data on this case meets the specified criteria> Time Spent with Patient Time attestation: Total time spent providing and/or coordinating discharge services: DS: Data Data Completed and Pending Labs on day of discharge: Labs from last 24 hours 11/05/24 09:52 WBC 10.1 H RBC 3.33 L Hgb 8.6 L Hct 28.0 L MCV 84.1 MCH 25.8 L MCHC 30.7 L RDW 17.0 H Plt Count 224 MPV 10.6 H Immature Gran % (Auto) 2.9 H Neut % (Auto) 75.4 H Lymph % (Auto) 15.8 L [place] % (Auto) 5.1 Eos % (Auto) 0.5 Baso % (Auto) 0.3 Lymph # (Auto) 1.60 [place] # (Auto) 0.5 Eos # (Auto) 0.1 Baso # (Auto) 0.0 Abs Immat Gran (auto) 0.29 H Absolute Neuts (auto) 7.6 H Absolute Nucleated RBC 0.040 H Nucleated RBC % 0.4 H Syphilis IgG/IgM Ab Negative HIV 1&2 Ab/P24 Ag 4thGn Negative Blood Type A Positive Antibody Screen Negative Discharge Plan Discharge Attending physician on discharge: Iban Joe Discharging Clinician: Iban Joe Patient Disposition: Home Activity: may shower, may drive after 2 weeks and pelvic rest Diet: regular Wound Care Instructions: incision open to air Discharge Instructions: Call or return if temperature above 100.4? F, increased abdominal pain, increased vaginal bleeding or any new problems. Patient Language: [place] Stand Alone Forms: General Discharge Information Follow-up/Referrals: Iban Joe MD [Physician] - 4 Weeks Discharge Medications: New ibuprofen 600 mg tablet 600 mg PO Q6H PRN (Reason: cramps) Qty: 30 0RF ferrous sulfate 325 mg (65 mg iron) tablet 325 mg PO DAILY Qty: 30 0RF oxycodone-acetaminophen [Percocet] 5-325 mg tablet 1 - 2 tablet PO Q6H PRN (Reason: pain) Qty: 30 0RF Continued famotidine [Pepcid] 20 mg Tablet 20 mg PO DAILY PNV cmb#95-ferrous fumarate-FA [] 28 mg iron- 800 mcg Tablet 1 tablet PO DAILY Date of admission: 11/05/24 09:24 Primary Care Provider: JOSESANGEETHA Admitting Provider: Iban Joe Attending physician on admission: Iban Joe Condition: Stable
--- NOTE | 2024-11-05 16:00 | PC.NURSE ---
1530. Patient transferred to post room 285# via stretcher, at mothers side in crib, father of the baby present as well. Support person present. Oriented to unit, room, information board, rooming in, admission packet and security measures. Patient verbalizes understanding.
[2024-11-05] MEDS: DOCUSATE SODIUM 100 MG CAPSULE PO (16:30)
[2024-11-05] MEDS: ACETAMINOPHEN 325 MG TABLET 650 MG PO ×2 (16:30→22:30)
[2024-11-05] MEDS: SIMETHICONE 80 MG TAB.CHEW PO (16:30)
[2024-11-05] MEDS: KETOROLAC 15 MG/ML VIAL (*BKC) IV PUSH ×2 (16:30→22:30)
[2024-11-05] MEDS: POLYSACCHARIDE IRON COMPLEX 150 MG CAPSULE PO (16:31)
[2024-11-05] MEDS: DEXTROSE 5%/0.45% SOD CHL 1,000 ML 125 ML IV CONT (19:05)
[2024-11-06] MEDS: ACETAMINOPHEN 325 MG TABLET 650 MG PO ×4 (04:00→22:40)
[2024-11-06] MEDS: KETOROLAC 15 MG/ML VIAL (*BKC) IV PUSH ×2 (04:00→10:35)
[2024-11-06] MEDS: LORATADINE 10 MG TABLET (04:49)
[2024-11-06 05:33] LABS: Basophils Absolute Auto 0.1 K/mm3 (0.0-0.1); Basophils Percent Auto 0.5 % (0.2-1.2); Eosinophils Absolute Auto 0.1 K/mm3 (0-0.3); Eosinophils Percent Auto 0.8 % (0-4.4); Hematocrit 27.5 % (37.0-47.0); Hemoglobin 8.2 g/dL (12.0-15.0); Immature Granulocyte Absolute 0.22 K/mm3 (0.00-0.031); Immature Granulocyte Percent A 2.2 % (0-0.5); Lymphocytes Absolute Auto 1.88 K/mm3 (0.9-3.2); Lymphocytes Percent Auto 18.4 % (18.3-44.2); Mean Corpuscular HGB Conc 29.8 g/dl (32-36); Mean Corpuscular Hemoglobin 25.4 pg (26-34); Mean Corpuscular Volume 85.1 fl (80-100); Mean Platelet Volume 11.3 fl (7.4-10.4); Monocytes Absolute Auto 0.8 K/mm3 (0.1-0.6); Monocytes Percent Auto 7.9 % (2.6-8.5); Neutrophils Absolute Auto 7.2 K/mm3 (1.3-6.7); Neutrophils Percent Auto 70.2 % (45.5-73.1); Nucleated Red Blood Cells Perc 0.2 % (0.0-0.2); Platelet Count Result 185 k/mm3 (150-375); Red Blood Count 3.23 M/mm3 (4.2-5.4); Red Cell Distribution Width 17.2 % (11.5-14.5); White Blood Count 10.2 K/mm3 (4.5-10.0)
[2024-11-06 06:42] LABS: Anisocytosis 1+; Hypochromasia 1+; Schistocytes None Seen
[2024-11-06 07:12] LABS: Platelet Estimate Adequate (Adequate)
[2024-11-06 07:40] VITALS: BP 117/67; PULSE 71; RESP 18; TEMP 37.3; O2SAT 98
--- NOTE | 2024-11-06 07:49 | WPDANLDPN2 ---
Anes-Prog Note L&D Date/Time: 11/06/24 07:49 Neuro status: Neuro function grossly intact. Cardiovascular status: normal Respiratory status: normal Airway patency: baseline Mental status: baseline Vital Signs: Last Vital Signs Temp 36.6 C 11/05/24 22:52 Pulse 79 11/05/24 22:52 Resp 18 11/05/24 22:52 BP 106/52 L 11/05/24 22:52 Pulse Ox 97 11/05/24 22:52 O2 Del Method Room Air 11/05/24 19:09 Pain score (VAS): 2 I/O: Intake & Output 11/05/24 11/05/24 11/06/24 15:59 23:59 07:59 Intake Total 200 Output Total 525 150 300 Balance -525 50 -300 Patient feedback: Patient satisfied with anesthetic care.
--- NOTE | 2024-11-06 07:49 | WPDANLDNPN2 ---
Anes-Prog Note L&D-Neuraxial Date/Time: 11/06/24 07:49 Patient feedback: Patient satisfied with post-operative pain management.
--- NOTE | 2024-11-06 08:47 | PM.OBPNVD ---
OB - PN: Subj Subjective Date/time seen: 11/06/24 08:47 Narrative: Pain OK. Tolerating diet. OB - PN: Obj Data Labs 11/06/24 04:05 Labs: Laboratory Results - last 24 hr 11/05/24 11/06/24 09:52 04:05 WBC 10.1 H 10.2 H RBC 3.33 L 3.23 L Hgb 8.6 L 8.2 L Hct 28.0 L 27.5 L MCV 84.1 85.1 MCH 25.8 L 25.4 L MCHC 30.7 L 29.8 L RDW 17.0 H 17.2 H Plt Count 224 185 MPV 10.6 H 11.3 H Immature Gran % (Auto) 2.9 H 2.2 H Neut % (Auto) 75.4 H 70.2 Lymph % (Auto) 15.8 L 18.4 [place] % (Auto) 5.1 7.9 Eos % (Auto) 0.5 0.8 Baso % (Auto) 0.3 0.5 Lymph # (Auto) 1.60 1.88 [place] # (Auto) 0.5 0.8 H Eos # (Auto) 0.1 0.1 Baso # (Auto) 0.0 0.1 Abs Immat Gran (auto) 0.29 H 0.22 H Absolute Neuts (auto) 7.6 H 7.2 H Absolute Nucleated RBC 0.040 H 0.020 H Band Neutrophils % Not Reportable Nucleated RBC % 0.4 H 0.2 Platelet Estimate Adequate Hypochromasia 1+ Anisocytosis 1+ Schistocytes None seen Syphilis IgG/IgM Ab Negative HIV 1&2 Ab/P24 Ag 4thGn Negative Blood Type A Positive Antibody Screen Negative OB - PN A/P Assessment and Plan (1) delivery delivered: Code(s): O82 - Encounter for delivery without indication Status: Acute Plan day: 1 Comments: A: POD#1, doing well. P: Routine care. Exam Narrative: AVSS I/O OK ABD soft, nontender, fundus firm. Incision c/d/i. EXT nontender
[2024-11-06] MEDS: DOCUSATE SODIUM 100 MG CAPSULE PO ×2 (09:03→16:17)
[2024-11-06] MEDS: POLYSACCHARIDE IRON COMPLEX 150 MG CAPSULE PO ×2 (09:03→16:17)
[2024-11-06] MEDS: SIMETHICONE 80 MG TAB.CHEW PO ×2 (09:03→16:17)
[2024-11-06] MEDS: MULTIVIT/MIN/PREN/FOL AC/IRON TABLET 1 TAB PO (09:03)
--- NOTE | 2024-11-06 09:57 | PC.NURSE ---
Introductions were made, then consulted with patient to assess needs related to . Mother led the conversation with her?plans to feed?her infant and the?experience so far. Mother has been able to independently latch for feedings but does state that she has nipple soreness and slight pinching when is feeding. Discussed establishing a deeper latch to decrease discomfort with feedings. Mother will call this RN for assistance at infants next feeding. Gel cooling pads given to patient to use along with her nipple cream.
[2024-11-06 11:47] VITALS: BP 106/68; PULSE 78; RESP 16; TEMP 36.8; O2SAT 98
[2024-11-06] MEDS: IBUPROFEN 600 MG TABLET PO ×2 (16:17→22:40)
[2024-11-06 19:40] VITALS: BP 115/77; PULSE 68; RESP 16; TEMP 36.7; O2SAT 99
[2024-11-06] MEDS: HYDROcodone/acetaminophen (*CRX) 5-325 MG TABLET 1 TAB PO (21:05)
[2024-11-07] MEDS: IBUPROFEN 600 MG TABLET PO ×2 (04:34→10:26)
[2024-11-07] MEDS: ACETAMINOPHEN 325 MG TABLET 650 MG PO ×2 (04:34→10:27)
--- NOTE | 2024-11-07 08:37 | PC.NURSE ---
Consulted with mother concerning needs and she shared her ability to independently latch infant optimally with minimal pain with initial latching on but after 15-20 seconds, pain goes away, advised mother to continue to use her lanolin and cooling gel pads. Last night mother did supplement one time with breastmilk she pumped using a hand pump due to weight weight loss (down 8%), she does have her own breast pump to use at home, CLC offered to do a nipple measurement and mother declined, said she had already measured herself. Mother is feeding appropriately for growth of infant and understands stimulating to eat if needed. Infant has had appropriate feedings in the last 24 hours meets the outcomes for weight, output, blood sugar and jaundice at this time. Reinforced understanding of milk production, transition of milk, signs of adequate intake, transition of stool, prevention/relief of engorgement, plugged ducts, mastitis, responsive watching for feeding cues, the different methods of stimulating to breastfeed 1-3 hours after the start of the last feeding, community resources, and when to call a provider using the resource of the feeding sheet along with the mom and baby guide. Mother voiced understanding of the information shared, is confident to continue effectively her infant at home, when to call for assistance, denies any additional assistance or education at this time. Reported to the Primary RN.
[2024-11-07 08:45] VITALS: BP 116/71; PULSE 89; RESP 16; TEMP 36.6; O2SAT 98
[2024-11-07] MEDS: MULTIVIT/MIN/PREN/FOL AC/IRON TABLET 1 TAB PO (10:26)
[2024-11-07] MEDS: SIMETHICONE 80 MG TAB.CHEW PO (10:26)
[2024-11-07] MEDS: POLYSACCHARIDE IRON COMPLEX 150 MG CAPSULE PO (10:26)
[2024-11-07] MEDS: DOCUSATE SODIUM 100 MG CAPSULE PO (10:26)
[2024-11-07] MEDS: MEASLES,MUMPS,RUBELLA VACCINE 0.5 ML VIAL SUB-Q (10:27)
--- NOTE | 2024-11-07 12:46 | P.PNOB_ITS ---
OB - PN: Subj Subjective Date/time seen: 11/07/24 12:46 Narrative: Pain OK. Tolerating diet. Would like to go home. OB - PN: Obj Data Labs 11/06/24 04:05 OB - PN A/P Plan Comments: A: POD#2, doing well. P: Home to f/u 4 weeks. Exam 2 Narrative: AVSS ABD soft, nontender, fundus firm. Incision c/d/i. EXT nontender
[2024-11-08 11:23] VITALS: BP 112/75; PULSE 82; RESP 20; TEMP 36.8; O2SAT 100
== END 2024-11-07 14:34 | disposition home or self-care (01) | DRG 788 ==
LOC: ANHLDR 13:20 → ANHOB2 15:36
PROVIDERS: Admitting Provider Obstetrics & Gynecology; PCP Nurse Practitioner Family; Visit Provider Obstetrics & Gynecology
PROC: 10D00Z1 Extraction of Products of Conception, Low, Open Approach (ICD-10-PCS; CPT 59514; principal; 2024-11-05 12:00)
DX: O34.219 Maternal care for unspecified type scar from previous cesarean delivery (principal); Z87.891 Personal history of nicotine dependence; Z3A.39 39 weeks gestation of pregnancy; Z37.1 Single stillbirth
CPT/HCPCS: 36415; 85025; 86593; 86703; 86850; 86900; 86901; 90710; A9270; G0432; J0690; J1885; J2274; J2371; J2405; J2590; J7120

== ENCOUNTER 2024-11-13 10:30 | Outpatient (CLI) | payer OTHER, SELFPAY ==
--- NOTE | ~2024-11-13 | US_ITS ---
EXAMINATION:US venous doppler LE LT INDICATION:Left lower extremity pain TECHNIQUE: Multiple grayscale, color flow and Doppler images of the left lower extremity deep venous systems were obtained and reviewed. COMPARISON:No prior studies for comparison. FINDINGS: The common femoral, superficial femoral and popliteal veins demonstrate normal respiratory variation, augmentation and compressibility. Color flow is also seen within the posterior tibial, pe roneal, greater saphenous and profunda veins. IMPRESSION: 1: No lower extremity deep venous thrombosis. Reviewed, dictated and finalized at location A.
== END 2024-11-13 10:31 | disposition home or self-care (01) ==
PROVIDERS: PCP Nurse Practitioner Family; Visit Provider Obstetrics & Gynecology
DX: O90.89 Other complications of the puerperium, not elsewhere classified (principal); M79.662 Pain in left lower leg
CPT/HCPCS: 93971